=== PATIENT | female | born 1965 | race Caucasian/White ===

== ENCOUNTER 2022-09-20 00:45 | Emergency (ER) | payer BC ==
[~2022-09-20] VITALS: Ht 172.7 cm; Wt 104.8 kg
[2022-09-20] MEDS ORDERED: DILTIAZEM HCL 25 MG IV IV ONE ×3 (01:00→04:00)
[2022-09-20] MEDS ORDERED: POTASSIUM BICARBONATE/CIT AC 25 MEQ TABLET.EFF PO ONE (01:00)
[2022-09-20] MEDS ORDERED: POTASSIUM BICARBONATE/CIT AC 25 MEQ TABLET.EFF ONE (01:09)
[2022-09-20] MEDS ORDERED: MAGNESIUM SULFATE/D5W 300 ML ONE (01:09)
[2022-09-20] MEDS ORDERED: DILTIAZEM HCL 25 MG IV ONE ×3 (01:10→03:57)
[2022-09-20] MEDS: MAGNESIUM SULFATE/D5W 100 ML IV SCH ×3 (01:23→02:35)
[2022-09-20 01:26] LABS: HEMATOCRIT 37.9 % (31.2-41.9); MEAN CORPUSCULAR HEMOGLOBIN 26.6 uug (24.7-32.8); PLATELET COUNT (AUTO) 302 K/uL (179-408)
[2022-09-20 01:32] LABS: CARBON DIOXIDE 29 mmol/L (21-32); CHLORIDE 105 mmol/L (98-107); CREATININE 0.9 mg/dL (0.6-1.3); GLUCOSE 118 mg/dL (74-106); MAGNESIUM 2.2 mg/dL (1.8-2.4); POTASSIUM 3.3 mmol/L (3.5-5.1); UREA NITROGEN, BLOOD 12 mg/dL (7-18)
[2022-09-20 01:46] LABS: THYROID STIMULATING HORMONE 14.009 mIU/mL (0.358-3.740)
[2022-09-20] MEDS ORDERED: IRBE150T25 PO (01:53)
[2022-09-20] MEDS ORDERED: OMEP20TA20 PO (01:53)
[2022-09-20] MEDS ORDERED: FENTANYL CITRATE 100 MCG/2 ML AMPUL IV ONE (03:45)
[2022-09-20] MEDS ORDERED: PROPOFOL 200 MG/20 ML BOTTLE IV ONE (03:45)
[2022-09-20] MEDS ORDERED: PROPOFOL 200 MG/20 ML BOTTLE ONE (03:56)
[2022-09-20] MEDS ORDERED: FENTANYL CITRATE 100 MCG/2 ML AMPUL ONE (03:57)
[2022-09-20 04:44] VITALS: BP 130/79
== END 2022-09-20 04:44 | disposition home or self-care (01) ==
LOC: ER 00:52
DX: I48.0 Paroxysmal atrial fibrillation (principal); E03.9 Hypothyroidism, unspecified; Z88.5 Allergy status to narcotic agent; Z88.8 Allergy status to other drugs, medicaments and biological substances; Z79.899 Other long term (current) drug therapy
CPT/HCPCS: 36415; 71045; 83735; 84443; 84484; 85025; 93005; A4663; J3010; J3475; J3490